=== PATIENT | male | born 1950 | race African-American/Black ===

== ENCOUNTER 2021-03-04 05:26 | Inpatient (IN) | payer MEDICARE, MEDICAID ==
[~2021-03-04] VITALS: Ht 188 cm; Wt 71.7 kg
[~2021-03-04 05:26] MED LIST: AMLO5TAB88 PO; BENZ-16 PO; DUTA0.5C37 PO; HYDR-4001 PO; INSLIS SUBCUT; KALET2 PO; LAMI150T23 PO; LEVO500T89 MT; TAMS-11 PO
[2021-03-04 06:28] LABS: PARTIAL THROMBOPLASTIN TIME 23.9 sec (23.4-31.0); PROTHROMBIN TIME 10.3 sec (9.6-11.0)
[2021-03-04] MEDS ORDERED: DOCU100T PO (06:29)
[2021-03-04] MEDS ORDERED: FERR325T6 PO (06:29)
[2021-03-04] MEDS ORDERED: SODIUM CHLORIDE 0.9% 1,000 ML IV SCH (06:30)
[2021-03-04] MEDS ORDERED: INSU100I28 SQ (06:31)
[2021-03-04] MEDS ORDERED: MEPERIDINE HCL/PF 25MG/ML CPJ IV PRN ×2 (07:30)
[2021-03-04] MEDS ORDERED: MORPHINE SULFATE 2 MG/ML CPJ (NOT FOR IM USE) IV PRN (07:30)
[2021-03-04] MEDS ORDERED: ONDANSETRON HCL 4MG/2ML INJ IV PRN (07:30)
[2021-03-04] MEDS ORDERED: HYDROMORPHONE HCL/PF 2MG/ML CPJ IV PRN (07:30)
[2021-03-04] MEDS ORDERED: SODIUM CHLORIDE 0.9% 1,000 ML IV ONE (07:30)
[2021-03-04] MEDS ORDERED: LIDOCAINE HCL/PF 1% 10 MG/ML 5ML VIAL ONE (07:41)
[2021-03-04] MEDS ORDERED: MIDAZOLAM HCL 2 MG/2 ML VIAL ONE (07:41)
[2021-03-04] MEDS ORDERED: FENTANYL CITRATE/PF 50MCG/ML 2ML VIAL ONE ×2 (07:41→07:42)
[2021-03-04] MEDS ORDERED: GLYCOPYRROLATE 0.2 MG/ML 2ML VIAL ONE (07:41)
[2021-03-04] MEDS ORDERED: PROPOFOL 200MG/20ML VIAL IV ONE (07:41)
[2021-03-04] MEDS ORDERED: METOCLOPRAMIDE HCL 10MG/2ML VIAL ONE (07:42)
[2021-03-04] MEDS ORDERED: SUCCINYLCHOLINE CHLORIDE 200MG/10ML IV ONE (07:42)
[2021-03-04] MEDS ORDERED: CEFAZOLIN SODIUM 1000MG/VIAL ONE (07:43)
[2021-03-04] MEDS ORDERED: PHENYLEPHRINE HCL 10 MG/ML 1ML (IV VIAL) IV ONE (08:34)
[2021-03-04] MEDS ORDERED: ACETAMINOPHEN 325MG TABLET PO PRN (08:45)
[2021-03-04] MEDS ORDERED: MAGNESIUM HYDROXIDE 400MG/5ML 30ML UDC PO PRN (08:45)
[2021-03-04] MEDS ORDERED: HYDROCODONE/APAP 7.5/325MG 1 TAB TABLET PO PRN (08:45)
[2021-03-04] MEDS ORDERED: NALOXONE HCL 0.4MG/ML VIAL IV PRN (10:00)
[2021-03-04] MEDS ORDERED: LORAZEPAM 1MG TABLET PO PRN (10:00)
[2021-03-04 11:41] LABS: HEMATOCRIT 30.2 % (42.0-52.0); HEMOGLOBIN 10.3 g/dL (14.0-18.0)
[2021-03-04] MEDS ORDERED: CEFAZOLIN SODIUM 1000MG/VIAL IV SCH (14:00)
[2021-03-04 17:00] VITALS: BP 126/66
[2021-03-04] MEDS ORDERED: LOPINAVIR PO SCH (17:00)
[2021-03-04] MEDS: INSULIN LISPRO 100 UNITS/ML SUBCUT SCH ×3 (17:00→21:31)
[2021-03-04] MEDS ORDERED: RITONAVIR PO SCH (17:00)
[2021-03-04] MEDS: BLOOD SUGAR DIAGNOSTIC STRIP TEST SCH ×3 (17:20→21:14)
[2021-03-04 17:30] VITALS: BP 126/66
[2021-03-04] MEDS ORDERED: DEXTROSE 50% WATER 50ML SYRINGE IV PRN ×2 (17:40→17:41)
[2021-03-04] MEDS: CEFAZOLIN 1000MG PREMIX 50 ML IV SCH (18:38)
[2021-03-04 20:00] VITALS: BP 110/68
[2021-03-04] MEDS ORDERED: ZIDOVUDINE PO SCH (21:00)
[2021-03-04] MEDS ORDERED: LAMIVUDINE PO SCH (21:00)
[2021-03-05] VITALS (7 sets, daily range): BP systolic 110–130; BP diastolic 58–72
[2021-03-05] MEDS: CEFAZOLIN 1000MG PREMIX 50 ML IV SCH (03:32)
[2021-03-05 06:21] LABS: BASOPHILS % 0.2 % (0.0-2.0); HEMATOCRIT. 29.6 % (42.0-52.0); HEMOGLOBIN. 10.2 g/dL (14.0-18.0); LYMPHOCYTES % 27.8 % (20.0-50.0); MEAN CORPUSCULAR HEMOGLOBIN 35.4 pg (28.0-32.0); MEAN CORPUSCULAR VOLUME 102.8 fL (80.0-94.0); MEAN PLATELET VOLUME 7.8 fl (7.4-10.4); MONOCYTES % 9.4 % (2.0-8.0); NEUTROPHILS % 62.6 % (40.0-76.0); PLATELET 309 x1000/uL (130-400); RED BLOOD CELL COUNT 2.88 mill/uL (4.7-6.1)
[2021-03-05 06:35] LABS: CHLORIDE 107 mEq/L (98-107)
[2021-03-05] MEDS: BLOOD SUGAR DIAGNOSTIC STRIP TEST SCH ×3 (07:09→17:53)
[2021-03-05] MEDS: INSULIN LISPRO 100 UNITS/ML SUBCUT SCH ×3 (07:10→18:02)
[2021-03-05] MEDS: FERROUS SULFATE 325MG TABLET PO SCH ×3 (08:43→17:52)
[2021-03-05] MEDS: LOPINAVIR PO SCH ×2 (08:43→17:52)
[2021-03-05] MEDS: RITONAVIR PO SCH ×2 (08:43→17:52)
[2021-03-05] MEDS ORDERED: HYDROCORTISONE 2.5% CREAM 20GM TOP SCH (09:00)
[2021-03-05] MEDS ORDERED: AMLODIPINE 5MG TABLET PO SCH (09:00)
[2021-03-05] MEDS ORDERED: LEVOFLOXACIN 500MG TABLET PO SCH (11:00)
== END 2021-03-05 21:30 | disposition home or self-care (01) | DRG 713 ==
LOC: OR 05:26 → 6EST 17:01
PROVIDERS: ADMIT Urology; ATTEND Urology
PROC: 0VT08ZZ Resection of Prostate, Via Natural or Artificial Opening Endoscopic (ICD-10-PCS; principal; 2021-03-04)
DX: N40.1 Benign prostatic hyperplasia with lower urinary tract symptoms (principal); N13.8 Other obstructive and reflux uropathy; D64.9 Anemia, unspecified; N32.0 Bladder-neck obstruction; N47.1 Phimosis
CPT/HCPCS: 36415; 71045; 80048; 80051; 82962; 85014; 85018; 85025; 88305; 93005; J0330; J0690; J1815; J2250; J2370; J2405; J2704; J2765; J3010; J3490

== ENCOUNTER 2021-03-19 08:58 | Inpatient (IN) | payer MEDICARE, MEDICAID ==
[~2021-03-19] VITALS: Ht 165.1 cm; Wt 66.7 kg
[~2021-03-19 08:58] MED LIST changes: -BENZ-16 PO; +DOCU100T PO; +FERR325T6 PO; -HYDR-4001 PO; -INSLIS SUBCUT; +INSU100I28 SQ; -LEVO500T89 MT
[2021-03-19 09:43] LABS: BASOPHILS % 0.3 % (0.0-2.0); HEMATOCRIT. 30.9 % (42.0-52.0); HEMOGLOBIN. 10.5 g/dL (14.0-18.0); LYMPHOCYTES % 28.3 % (20.0-50.0); MEAN CORPUSCULAR HEMOGLOBIN 34.9 pg (28.0-32.0); MEAN CORPUSCULAR VOLUME 102.4 fL (80.0-94.0); MEAN PLATELET VOLUME 7.1 fl (7.4-10.4); MONOCYTES % 9.2 % (2.0-8.0); NEUTROPHILS % 62.2 % (40.0-76.0); PLATELET 422 x1000/uL (130-400); RED BLOOD CELL COUNT 3.01 mill/uL (4.7-6.1); RED CELL DISTRIBUTION WIDTH 15.9 % (11.6-14.6)
[2021-03-19 09:48] LABS: CHLORIDE 106 mEq/L (98-107)
[2021-03-19 09:50] LABS: PROTHROMBIN TIME 10.3 sec (9.6-11.0)
[2021-03-19] MEDS ORDERED: IOHEXOL-300 100 ML BOTTLE ONE (12:11)
[2021-03-19] MEDS ORDERED: METRONIDAZOLE 500 MG PREMIX 100 ML IV NR (14:00)
[2021-03-19] MEDS ORDERED: CEFTRIAXONE 1 G PREMIX 50 ML IV NR (14:00)
[2021-03-19] MEDS ORDERED: DIPHENHYDRAMINE 50MG/ML VIAL IV PRN (14:30)
[2021-03-19] MEDS ORDERED: ONDANSETRON HCL 4MG/2ML INJ IV PRN (14:30)
[2021-03-19] MEDS ORDERED: GUAIFENESIN 200MG/10ML SUGAR FREE UDC PO PRN (14:30)
[2021-03-19] MEDS ORDERED: PIPERACILLIN/TAZOBACTAM 3.375 G in DEXTROSE 5% WATER 50 ML IV SCH (14:30)
[2021-03-19] MEDS ORDERED: CLONIDINE 0.1MG TABLET PO PRN (14:30)
[2021-03-19] MEDS ORDERED: HYDROCODONE/ACETAMINOPHEN 5/325MG TABLET PO PRN (14:30)
[2021-03-19] MEDS ORDERED: DOCUSATE SODIUM 100MG CAPSULE PO PRN (14:30)
[2021-03-19] MEDS ORDERED: ACETAMINOPHEN 325MG TABLET PO PRN (14:30)
[2021-03-19] MEDS ORDERED: IPRATROPIUM/ALBUTEROL 0.5-3(2.5)MG/3ML NEB NEB PRN (14:30)
[2021-03-19] MEDS: DEXT 5%/0.45% NACL 1000ML 1,000 ML IV SCH (14:30)
[2021-03-19] MEDS ORDERED: MAGNESIUM/ALUMINUM HYDROXIDE/SIMETHICONE 30ML UDC PO PRN (14:30)
[2021-03-19] MEDS: FAMOTIDINE 20MG/2ML VIAL IV SCH (14:30)
[2021-03-19] MEDS ORDERED: LORAZEPAM 0.5MG TABLET PO PRN (14:30)
[2021-03-19] MEDS ORDERED: NA PHOS,M-B/NA PHOS,DI-BA ENEMA 118ML PR NR (14:30)
[2021-03-19] MEDS ORDERED: ACETAMINOPHEN 650MG SUPP PR PRN (14:30)
[2021-03-19] MEDS ORDERED: NALOXONE HCL 0.4MG/ML VIAL IV PRN (15:00)
[2021-03-19] MEDS ORDERED: PIPERACILLIN/TAZ 3.375G PREMIX 50 ML IV NR (15:00)
[2021-03-19] MEDS ORDERED: DEXTROSE 50% WATER 50ML SYRINGE IV PRN (15:15)
[2021-03-19 16:00] VITALS: BP 139/78
[2021-03-19 16:30] VITALS: BP 139/78
[2021-03-19] MEDS ORDERED: PIPERACILLIN/TAZOBACTAM 3.375 G in DEXTROSE 5% WATER 50 ML IV NR (17:00)
[2021-03-19] MEDS: BLOOD SUGAR DIAGNOSTIC STRIP TEST SCH ×2 (17:20→21:00)
[2021-03-19] MEDS ORDERED: DOCU100T PO (17:22)
[2021-03-19] MEDS ORDERED: KALET2 MT (17:22)
[2021-03-19] MEDS ORDERED: DUTA0.5C37 PO (17:22)
[2021-03-19] MEDS ORDERED: AMLO5TAB88 PO (17:22)
[2021-03-19] MEDS ORDERED: FERR325T6 PO (17:22)
[2021-03-19] MEDS ORDERED: CIPR500S4 PO (17:22)
[2021-03-19] MEDS ORDERED: LAMI1TAB PO (17:22)
[2021-03-19] MEDS ORDERED: TAMS-11 PO (17:22)
[2021-03-19] MEDS: INSULIN LISPRO 100 UNITS/ML SUBCUT SCH ×2 (17:50→21:00)
[2021-03-19 20:00] VITALS: BP 132/57
[2021-03-19] MEDS ORDERED: PIPERACILLIN/TAZOBACTAM 3.375G in DEXT 5% WATER 50ML IV SCH (22:00)
[2021-03-19] MEDS: PIPERACILLIN/TAZOBACTAM 3.375G in DEXT 5% WATER 50ML IV SCH (22:14)
[2021-03-19] MEDS: NA PHOS,M-B/NA PHOS,DI-BA ENEMA 118ML PR PRN (22:14)
[2021-03-20] VITALS: BP_SYST 124; BP_SYST 145; BP_DIAS 75; BP_DIAS 78
[2021-03-20 00:19] LABS: CLARITY URINE CLEAR (CLEAR); COLOR URINE YELLOW (YELLOW); KETONES URINE NEGATIVE (NEGATIVE); LEUKOCYTE ESTERASE URINE 3+ (NEGATIVE); NITRITE URINE NEGATIVE (NEGATIVE); OCCULT BLOOD URINE 2+ (NEGATIVE); PH URINE 7.5 (4.5-8.0); PROTEIN URINE 1+ (NEGATIVE); SPECIFIC GRAVITY URINE 1.028 (1.005-1.030); UROBILINOGEN URINE 0.2 E.U./dL (0.2-1.0)
[2021-03-20 04:00] VITALS: BP 130/70
[2021-03-20] MEDS: DEXT 5%/0.45% NACL 1000ML 1,000 ML IV SCH ×2 (06:16→22:40)
[2021-03-20] MEDS: NA PHOS,M-B/NA PHOS,DI-BA ENEMA 118ML PR PRN (06:16)
[2021-03-20] MEDS: PIPERACILLIN/TAZOBACTAM 3.375G in DEXT 5% WATER 50ML IV SCH ×2 (06:16→15:07)
[2021-03-20] MEDS: INSULIN LISPRO 100 UNITS/ML SUBCUT SCH ×4 (06:25→21:59)
[2021-03-20] MEDS: BLOOD SUGAR DIAGNOSTIC STRIP TEST SCH ×4 (06:25→21:00)
[2021-03-20 07:13] LABS: BASOPHILS % 0.3 % (0.0-2.0); EOSINOPHILS % 0.1 % (0.0-5.0); HEMATOCRIT. 30.7 % (42.0-52.0); HEMOGLOBIN. 10.3 g/dL (14.0-18.0); LYMPHOCYTES % 27.4 % (20.0-50.0); MEAN CORPUSCULAR HEMOGLOBIN 34.5 pg (28.0-32.0); MEAN CORPUSCULAR VOLUME 102.8 fL (80.0-94.0); MEAN PLATELET VOLUME 7.6 fl (7.4-10.4); MONOCYTES % 10.6 % (2.0-8.0); NEUTROPHILS % 61.6 % (40.0-76.0); PLATELET 381 x1000/uL (130-400); RED BLOOD CELL COUNT 2.99 mill/uL (4.7-6.1); RED CELL DISTRIBUTION WIDTH 16.2 % (11.6-14.6)
[2021-03-20 08:00] VITALS: BP_SYST 120; BP_SYST 132; BP_DIAS 70; BP_DIAS 73
[2021-03-20 08:08] LABS: CHLORIDE 107 mEq/L (98-107)
[2021-03-20 08:18] LABS: LDL CHOLESTEROL 106 mg/dL (5-100)
[2021-03-20 08:19] LABS: HDL CHOLESTEROL 51 mg/dL (40-59); T4 FREE 1.17 ng/dL (0.76-1.46)
[2021-03-20] MEDS: FAMOTIDINE 20MG/2ML VIAL IV SCH (10:42)
[2021-03-20 12:00] VITALS: BP 132/73
[2021-03-20] MEDS ORDERED: LACTULOSE 20G/30ML UDC PO SCH (12:15)
[2021-03-20] MEDS ORDERED: DOCUSATE SODIUM 100MG CAPSULE PO SCH (12:15)
[2021-03-20 16:00] VITALS: BP 143/77
[2021-03-20] MEDS ORDERED: VANCOMYCIN 1500MG in DEXTROSE 5% WATER 250ML IV SCH (16:00)
[2021-03-20 17:19] LABS: CREATINE KINASE 58 IU/L (39-308)
[2021-03-20 17:20] LABS: CREATINE KINASE MB FRACTION < 1.0 ng/mL (0.5-3.6)
[2021-03-20] MEDS: METRONIDAZOLE 500MG TABLET PO SCH ×2 (18:04→22:39)
[2021-03-20] MEDS: DOCUSATE SODIUM 100MG CAPSULE PO SCH (18:04)
[2021-03-20] MEDS: CEFEPIME 2,000 MG in DEXT 5% WATER 100 ML IV SCH ×2 (18:05→22:39)
[2021-03-20 20:00] VITALS: BP 124/69
[2021-03-20] MEDS: ZIDOVUDINE PO SCH (21:58)
[2021-03-20] MEDS: LAMIVUDINE PO SCH (21:58)
[2021-03-20] MEDS: LOPINAVIR PO SCH (21:58)
[2021-03-20] MEDS: RITONAVIR PO SCH (21:58)
[2021-03-20] MEDS ORDERED: *PATIENT'S OWN MEDICATION STORAGE XX SCH (22:00)
[2021-03-21] VITALS (39 sets, daily range): BP systolic 105–139; BP diastolic 53–97
[2021-03-21] MEDS: CEFEPIME 2,000 MG in DEXT 5% WATER 100 ML IV SCH ×3 (05:15→21:57)
[2021-03-21] MEDS ORDERED: VANCOMYCIN 750 MG PREMIX 150 ML IV SCH ×2 (06:00→20:00)
[2021-03-21] MEDS ORDERED: LIDOCAINE HCL/EPINEPHRINE 1%-EPI 1:100,000 20 ML VIAL ONE (06:27)
[2021-03-21] MEDS ORDERED: THROMBIN (BOVINE) 5000 UNITS/VIAL TOP ONE (06:27)
[2021-03-21] MEDS ORDERED: GENTAMICIN SULF 40MG/ML 2ML VIAL ONE (06:27)
[2021-03-21] MEDS: BLOOD SUGAR DIAGNOSTIC STRIP TEST SCH ×4 (06:40→21:22)
[2021-03-21 06:55] LABS: BASOPHILS % 0.3 % (0.0-2.0); EOSINOPHILS % 0.1 % (0.0-5.0); HEMATOCRIT. 30.3 % (42.0-52.0); HEMOGLOBIN. 10.2 g/dL (14.0-18.0); LYMPHOCYTES % 26.3 % (20.0-50.0); MEAN CORPUSCULAR HEMOGLOBIN 34.4 pg (28.0-32.0); MEAN CORPUSCULAR VOLUME 102.3 fL (80.0-94.0); MEAN PLATELET VOLUME 7.9 fl (7.4-10.4); MONOCYTES % 14.1 % (2.0-8.0); NEUTROPHILS % 59.2 % (40.0-76.0); PLATELET 367 x1000/uL (130-400); RED BLOOD CELL COUNT 2.96 mill/uL (4.7-6.1); RED CELL DISTRIBUTION WIDTH 16.1 % (11.6-14.6)
[2021-03-21 06:58] LABS: CHLORIDE 106 mEq/L (98-107)
[2021-03-21] MEDS ORDERED: PHENYLEPHRINE HCL 10 MG/ML 1ML (IV VIAL) IV ONE (07:20)
[2021-03-21] MEDS ORDERED: MIDAZOLAM HCL 2 MG/2 ML VIAL ONE (07:20)
[2021-03-21] MEDS ORDERED: SODIUM CHLORIDE 0.9% 10ML VIAL ONE (07:20)
[2021-03-21] MEDS ORDERED: NEOSTIGMINE METHYLSULFATE 1MG/ML 10 ML VIAL ONE (07:20)
[2021-03-21] MEDS ORDERED: FENTANYL CITRATE/PF 50MCG/ML 2ML VIAL ONE (07:20)
[2021-03-21] MEDS ORDERED: SUCCINYLCHOLINE CHLORIDE 200MG/10ML IV ONE (07:20)
[2021-03-21] MEDS ORDERED: GLYCOPYRROLATE 0.2 MG/ML 2ML VIAL ONE (07:20)
[2021-03-21] MEDS ORDERED: PROPOFOL 200MG/20ML VIAL IV ONE (07:20)
[2021-03-21] MEDS ORDERED: ROCURONIUM BROMIDE 10MG/ML VIAL 5ML IV ONE ×2 (07:20→08:12)
[2021-03-21] MEDS ORDERED: METOCLOPRAMIDE HCL 10MG/2ML VIAL ONE (07:21)
[2021-03-21] MEDS ORDERED: ONDANSETRON HCL 4MG/2ML INJ ONE (07:21)
[2021-03-21] MEDS ORDERED: MORPHINE SULFATE 4 MG/ML CPJ (NOT FOR IM USE) IV PRN (07:45)
[2021-03-21] MEDS: METRONIDAZOLE 500MG TABLET PO SCH ×2 (09:00→21:34)
[2021-03-21] MEDS: FAMOTIDINE 20MG/2ML VIAL IV SCH (09:00)
[2021-03-21] MEDS: DOCUSATE SODIUM 100MG CAPSULE PO SCH ×2 (09:00→17:27)
[2021-03-21 09:08] LABS: ABSOLUTE EOSINOPHILS 0.2 x10E3/uL (0.0-0.4); ABSOLUTE LYMPHOCYTES 2.7 x10E3/uL (0.7-3.1); ABSOLUTE MONOCYTES 0.8 x10E3/uL (0.1-0.9); ABSOLUTE NEUTROPHILS 4.3 x10E3/uL (1.4-7.0); BASOPHILS 0 % (Not Estab.); HEMOGLOBIN 10.3 g/dL (13.0-17.7); IMMATURE GRANULOCYTES 0 % (Not Estab.); LYMPHOCYTES 34 % (Not Estab.); MEAN CORPUSCULAR HEMOGLOBIN 33.8 pg (26.6-33.0); MEAN CORPUSCULAR HGB CONC. 33.2 g/dL (31.5-35.7); MEAN CORPUSCULAR VOLUME 102 fL (79-97); MONOCYTES 9 % (Not Estab.); NEUTROPHILS 55 % (Not Estab.); PLATELETS 388 x10E3/uL (150-450); RBC 3.05 x10E6/uL (4.14-5.80); RED CELL DISTRIBUTION WIDTH 15.9 % (11.6-15.4)
[2021-03-21] MEDS: RITONAVIR PO SCH ×2 (09:20→21:35)
[2021-03-21] MEDS: LAMIVUDINE PO SCH ×2 (09:20→21:34)
[2021-03-21] MEDS: ZIDOVUDINE PO SCH ×2 (09:20→21:34)
[2021-03-21] MEDS: LOPINAVIR PO SCH ×2 (09:20→21:35)
[2021-03-21] MEDS ORDERED: ONDANSETRON INJ IV PRN (09:30)
[2021-03-21] MEDS ORDERED: DIPHENHYDRAMINE INJ IV PRN (09:30)
[2021-03-21] MEDS ORDERED: NALOXONE INJ IV PRN (09:30)
[2021-03-21] MEDS ORDERED: NICARDIPINE 100 MG in SODIUM CHLORIDE 0.9% 60 ML IV PRN (09:30)
[2021-03-21] MEDS ORDERED: HYDROMORPHONE PCA 10MG/50ML IV PRN (09:30)
[2021-03-21] MEDS: DEXT 5%/LACTATED RINGERS 1,000 ML IV SCH ×2 (09:44→17:27)
[2021-03-21] MEDS: INSULIN LISPRO 100 UNITS/ML SUBCUT SCH ×3 (11:30→21:44)
[2021-03-21 13:07] LABS: % CD 3 POS. LYMPHOCYTES 77.5 % (57.5-86.2); % CD 4 POS. LYMPHOCYTES 40.8 % (30.8-58.5); % CD 8 POS. LYMPH 35.3 % (12.0-35.5); ABSOLUTE CD 3 2093 /uL (622-2402); ABSOLUTE CD 4 HELPER 1102 /uL (359-1519); ABSOLUTE CD 8 SUPPRESSOR 953 /uL (109-897); CD4/CD8 RATIO 1.16 (0.92-3.72)
[2021-03-21] MEDS: VANCOMYCIN 750 MG PREMIX 150 ML IV SCH (23:12)
[2021-03-22] VITALS: BP 128/66
[2021-03-22] MEDS: DEXT 5%/LACTATED RINGERS 1,000 ML IV SCH ×3 (00:16→16:05)
[2021-03-22 04:00] VITALS: BP 130/60
[2021-03-22] MEDS: CEFEPIME 2,000 MG in DEXT 5% WATER 100 ML IV SCH ×3 (05:11→21:31)
[2021-03-22 05:20] LABS: CHLORIDE 104 mEq/L (98-107)
[2021-03-22] MEDS: BLOOD SUGAR DIAGNOSTIC STRIP TEST SCH ×4 (06:11→21:00)
[2021-03-22] MEDS: INSULIN LISPRO 100 UNITS/ML SUBCUT SCH ×4 (06:20→21:00)
[2021-03-22 08:00] VITALS: BP 123/62
[2021-03-22] MEDS: DOCUSATE SODIUM 100MG CAPSULE PO SCH ×2 (08:44→16:11)
[2021-03-22] MEDS: METRONIDAZOLE 500MG TABLET PO SCH ×2 (08:44→20:53)
[2021-03-22] MEDS: FAMOTIDINE 20MG/2ML VIAL IV SCH (08:44)
[2021-03-22] MEDS: LOPINAVIR PO SCH ×2 (08:45→20:54)
[2021-03-22] MEDS: LAMIVUDINE PO SCH ×2 (08:45→20:53)
[2021-03-22] MEDS: ZIDOVUDINE PO SCH ×2 (08:45→20:53)
[2021-03-22] MEDS: RITONAVIR PO SCH ×2 (08:45→20:54)
[2021-03-22] MEDS: VANCOMYCIN 750 MG PREMIX 150 ML IV SCH ×2 (08:47→22:47)
[2021-03-22 12:00] VITALS: BP 141/74
[2021-03-22] MEDS: NA PHOS,M-B/NA PHOS,DI-BA ENEMA 118ML PR PRN (15:02)
[2021-03-22 16:16] VITALS: BP 131/70
[2021-03-22 20:00] VITALS: BP 131/74
[2021-03-23] VITALS: BP 132/72
[2021-03-23] MEDS: DEXT 5%/LACTATED RINGERS 1,000 ML IV SCH ×3 (00:20→16:08)
[2021-03-23 04:00] VITALS: BP 104/68
[2021-03-23] MEDS: CEFEPIME 2,000 MG in DEXT 5% WATER 100 ML IV SCH ×3 (05:35→21:11)
[2021-03-23] MEDS: BLOOD SUGAR DIAGNOSTIC STRIP TEST SCH ×4 (06:06→21:12)
[2021-03-23] MEDS: INSULIN LISPRO 100 UNITS/ML SUBCUT SCH ×4 (06:46→21:00)
[2021-03-23 08:00] VITALS: BP 136/82
[2021-03-23] MEDS: FAMOTIDINE 20MG/2ML VIAL IV SCH (08:52)
[2021-03-23] MEDS: DOCUSATE SODIUM 100MG CAPSULE PO SCH ×2 (08:53→16:08)
[2021-03-23] MEDS: RITONAVIR PO SCH ×2 (08:53→21:14)
[2021-03-23] MEDS: LOPINAVIR PO SCH ×2 (08:53→21:14)
[2021-03-23] MEDS: METRONIDAZOLE 500MG TABLET PO SCH ×2 (08:53→21:11)
[2021-03-23] MEDS: ZIDOVUDINE PO SCH ×2 (08:53→21:13)
[2021-03-23] MEDS: LAMIVUDINE PO SCH ×2 (08:53→21:13)
[2021-03-23] MEDS: VANCOMYCIN 750 MG PREMIX 150 ML IV SCH ×2 (09:00→21:12)
[2021-03-23 12:00] VITALS: BP 142/79
[2021-03-23 15:41] LABS: BASOPHILS % 0.2 % (0.0-2.0); EOSINOPHILS % 0.2 % (0.0-5.0); HEMATOCRIT. 26.1 % (42.0-52.0); HEMOGLOBIN. 9.2 g/dL (14.0-18.0); LYMPHOCYTES % 16.3 % (20.0-50.0); MEAN CORPUSCULAR HEMOGLOBIN 35.4 pg (28.0-32.0); MEAN CORPUSCULAR VOLUME 100.1 fL (80.0-94.0); MEAN PLATELET VOLUME 7.7 fl (7.4-10.4); MONOCYTES % 9.9 % (2.0-8.0); NEUTROPHILS % 73.4 % (40.0-76.0); PLATELET 294 x1000/uL (130-400); RED BLOOD CELL COUNT 2.61 mill/uL (4.7-6.1); RED CELL DISTRIBUTION WIDTH 15.2 % (11.6-14.6)
[2021-03-23 15:53] LABS: CHLORIDE 100 mEq/L (98-107)
[2021-03-23 16:00] VITALS: BP 152/76
[2021-03-23 20:00] VITALS: BP 117/69
[2021-03-24] VITALS: BP 114/66
[2021-03-24 04:00] VITALS: BP 104/70
[2021-03-24] MEDS: CEFEPIME 2,000 MG in DEXT 5% WATER 100 ML IV SCH ×2 (06:13→14:40)
[2021-03-24] MEDS: INSULIN LISPRO 100 UNITS/ML SUBCUT SCH ×4 (07:10→21:00)
[2021-03-24] MEDS: BLOOD SUGAR DIAGNOSTIC STRIP TEST SCH ×4 (07:34→21:29)
[2021-03-24 07:57] LABS: CHLORIDE 103 mEq/L (98-107)
[2021-03-24 08:00] VITALS: BP 115/67
[2021-03-24] MEDS: FAMOTIDINE 20MG/2ML VIAL IV SCH (08:59)
[2021-03-24] MEDS: DOCUSATE SODIUM 100MG CAPSULE PO SCH ×2 (08:59→17:21)
[2021-03-24] MEDS: METRONIDAZOLE 500MG TABLET PO SCH ×2 (08:59→21:28)
[2021-03-24] MEDS: ZIDOVUDINE PO SCH ×2 (09:00→21:28)
[2021-03-24] MEDS: LOPINAVIR PO SCH ×2 (09:00→21:29)
[2021-03-24] MEDS: LAMIVUDINE PO SCH ×2 (09:00→21:28)
[2021-03-24] MEDS: RITONAVIR PO SCH ×2 (09:00→21:29)
[2021-03-24] MEDS: VANCOMYCIN 750 MG PREMIX 150 ML IV SCH (09:55)
[2021-03-24 11:49] LABS: BASOPHILS % 0.2 % (0.0-2.0); EOSINOPHILS % 0.2 % (0.0-5.0); HEMATOCRIT. 27.9 % (42.0-52.0); HEMOGLOBIN. 9.7 g/dL (14.0-18.0); LYMPHOCYTES % 16.4 % (20.0-50.0); MEAN CORPUSCULAR HEMOGLOBIN 35.4 pg (28.0-32.0); MEAN CORPUSCULAR VOLUME 101.4 fL (80.0-94.0); MEAN PLATELET VOLUME 7.4 fl (7.4-10.4); MONOCYTES % 11.4 % (2.0-8.0); NEUTROPHILS % 71.8 % (40.0-76.0); PLATELET 280 x1000/uL (130-400); RED BLOOD CELL COUNT 2.75 mill/uL (4.7-6.1); RED CELL DISTRIBUTION WIDTH 15.4 % (11.6-14.6)
[2021-03-24 12:00] VITALS: BP 113/63
[2021-03-24] MEDS: DEXT 5%/LACTATED RINGERS 1,000 ML IV SCH (12:54)
[2021-03-24] MEDS ORDERED: BISACODYL 10MG SUPP PR NR (15:00)
[2021-03-24 16:00] VITALS: BP 109/68
[2021-03-24] MEDS ORDERED: DOCUSATE SODIUM 100MG CAPSULE PO SCH (17:00)
[2021-03-24] MEDS: METOCLOPRAMIDE HCL 10MG/2ML VIAL IV SCH ×2 (17:21→23:28)
[2021-03-24] MEDS ORDERED: CEFTRIAXONE 2 G PREMIX 50 ML IV SCH (18:00)
[2021-03-24 20:00] VITALS: BP 119/64
[2021-03-24] MEDS ORDERED: CEFTRIAXONE 2 G in DEXTROSE 5% WATER 50 ML IV SCH (20:00)
[2021-03-24] MEDS: VANCOMYCIN 1 G PREMIX 200 ML IV SCH (21:28)
[2021-03-25] VITALS: BP 140/78
[2021-03-25 04:00] VITALS: BP 102/43
[2021-03-25] MEDS: BLOOD SUGAR DIAGNOSTIC STRIP TEST SCH ×2 (06:51→12:01)
[2021-03-25] MEDS: METOCLOPRAMIDE HCL 10MG/2ML VIAL IV SCH (06:51)
[2021-03-25] MEDS: INSULIN LISPRO 100 UNITS/ML SUBCUT SCH ×2 (06:52→12:11)
[2021-03-25 08:00] VITALS: BP 123/74
[2021-03-25] MEDS: DEXT 5%/LACTATED RINGERS 1,000 ML IV SCH (09:55)
[2021-03-25] MEDS: DOCUSATE SODIUM 100MG CAPSULE PO SCH (09:56)
[2021-03-25] MEDS: FAMOTIDINE 20MG/2ML VIAL IV SCH (09:56)
[2021-03-25] MEDS: VANCOMYCIN 1 G PREMIX 200 ML IV SCH (09:56)
[2021-03-25] MEDS: METRONIDAZOLE 500MG TABLET PO SCH (09:56)
[2021-03-25] MEDS: LOPINAVIR PO SCH (09:57)
[2021-03-25] MEDS: LAMIVUDINE PO SCH (09:57)
[2021-03-25] MEDS: ZIDOVUDINE PO SCH (09:57)
[2021-03-25] MEDS: RITONAVIR PO SCH (09:57)
[2021-03-25 11:02] LABS: BASOPHILS % 0.2 % (0.0-2.0); EOSINOPHILS % 0.2 % (0.0-5.0); HEMATOCRIT. 27.2 % (42.0-52.0); HEMOGLOBIN. 9.3 g/dL (14.0-18.0); LYMPHOCYTES % 15.5 % (20.0-50.0); MEAN CORPUSCULAR VOLUME 100.1 fL (80.0-94.0); MEAN PLATELET VOLUME 7.1 fl (7.4-10.4); MONOCYTES % 11.2 % (2.0-8.0); NEUTROPHILS % 72.9 % (40.0-76.0); PLATELET 335 x1000/uL (130-400); RED BLOOD CELL COUNT 2.72 mill/uL (4.7-6.1); RED CELL DISTRIBUTION WIDTH 15.1 % (11.6-14.6)
[2021-03-25 11:09] LABS: CHLORIDE 102 mEq/L (98-107)
[2021-03-25 12:00] VITALS: BP 122/64
[2021-03-25] MEDS ORDERED: METOCLOPRAMIDE HCL 10MG/2ML VIAL IV SCH (12:00)
[2021-03-25] MEDS ORDERED: NA PHOS,M-B/NA PHOS,DI-BA ENEMA 118ML PR NR (12:30)
[2021-03-25] MEDS ORDERED: LACTULOSE 20G/30ML UDC PO NR (12:30)
[2021-03-25 16:07] VITALS: BP 122/64
[2021-03-26] MEDS ORDERED: FAMOTIDINE 20MG TABLET PO SCH (09:00)
== END 2021-03-25 17:10 | DRG 29 ==
LOC: ER 08:58 → 6EST 13:59 → ENRESERV 14:57 → CANBEDREQ 22:01 → MICUNO 03-21 09:20 → 7EST 03-21 20:00
PROVIDERS: ADMIT Internal Medicine; ATTEND Internal Medicine
PROC: 01NB0ZZ Release Lumbar Nerve, Open Approach (ICD-10-PCS; principal; 2021-03-21)
PROC: 009U0ZZ Drainage of Spinal Canal, Open Approach (ICD-10-PCS; 2021-03-21)
PROC: 02HV33Z Insertion of Infusion Device into Superior Vena Cava, Percutaneous Approach (ICD-10-PCS; 2021-03-23)
PROC: B548ZZA Ultrasonography of Superior Vena Cava, Guidance (ICD-10-PCS; 2021-03-23)
DX: G06.2 Extradural and subdural abscess, unspecified (principal); N39.0 Urinary tract infection, site not specified; G82.20 Paraplegia, unspecified; G99.2 Myelopathy in diseases classified elsewhere; K56.41 Fecal impaction; E11.65 Type 2 diabetes mellitus with hyperglycemia; D63.8 Anemia in other chronic diseases classified elsewhere; K52.89 Other specified noninfective gastroenteritis and colitis; G89.29 Other chronic pain; R15.9 Full incontinence of feces; M48.061 Spinal stenosis, lumbar region without neurogenic claudication; B95.61 Methicillin susceptible Staphylococcus aureus infection as the cause of diseases classified elsewhere; E78.5 Hyperlipidemia, unspecified; I10 Essential (primary) hypertension; Z20.822 Contact with and (suspected) exposure to COVID-19; M47.812 Spondylosis without myelopathy or radiculopathy, cervical region; N32.0 Bladder-neck obstruction; N40.0 Benign prostatic hyperplasia without lower urinary tract symptoms; N47.1 Phimosis; Z82.49 Family history of ischemic heart disease and other diseases of the circulatory system; Z79.899 Other long term (current) drug therapy
CPT/HCPCS: 36415; 71045; 72100; 72156; 72157; 72158; 74018; 74177; 76000; 76937; 80048; 80053; 80061; 80202; 81003; 82550; 82553; 82962; 83036; 84439; 84443; 84484; 85025; 85651; 86140; 86359; 86360; 86850; 86900; 87070; 87075; 87426; 88305; 88311; 93005; 93306; 93970; 95863; 95925; 95926; 95928; 95929; 97116; 97161; 97164; 97166; 97530; 99285; C1725; J0330; J0692; J0696; J1170; J1580; J1815; J2250; J2270; J2370; J2405; J2543; J2704; J2710; J2765; J3010; J3370; J3490; J7040; J7060; J7121; Q9967; A4315

== ENCOUNTER 2021-03-25 17:07 | Inpatient (IN) | payer MEDICARE, MEDICAID ==
[~2021-03-25] VITALS: Ht 188 cm; Wt 73.5 kg
[~2021-03-25 17:07] MED LIST changes: +CIPR500S4 PO; +KALET2 MT; +LAMI1TAB PO
[2021-03-25] MEDS ORDERED: ACETAMINOPHEN 325MG TABLET PO PRN ×2 (18:30)
[2021-03-25] MEDS ORDERED: NON FORMULARY PATIENT HOME MED XX SCH ×2 (18:30)
[2021-03-25] MEDS ORDERED: MORPHINE SULFATE 4 MG/ML CPJ (NOT FOR IM USE) IV PRN (18:30)
[2021-03-25] MEDS ORDERED: IPRATROPIUM/ALBUTEROL 0.5-3(2.5)MG/3ML NEB HHN PRN (18:30)
[2021-03-25] MEDS ORDERED: DIPHENHYDRAMINE 50MG/ML VIAL IV PRN (18:30)
[2021-03-25] MEDS ORDERED: GUAIFENESIN 200MG/10ML SUGAR FREE UDC PO PRN (18:30)
[2021-03-25] MEDS ORDERED: CLONIDINE 0.1MG TABLET PO PRN (18:30)
[2021-03-25] MEDS ORDERED: MAGNESIUM/ALUMINUM HYDROXIDE/SIMETHICONE 30ML UDC PO PRN (18:30)
[2021-03-25] MEDS ORDERED: DEXTROSE 50% WATER 50ML SYRINGE IV PRN (18:30)
[2021-03-25] MEDS ORDERED: ONDANSETRON HCL 4MG/2ML INJ IV PRN (18:30)
[2021-03-25 19:22] VITALS: BP 121/75
[2021-03-25 20:00] VITALS: BP 129/77
[2021-03-25] MEDS ORDERED: ZIDOVUDINE PO SCH ×2 (20:00→21:00)
[2021-03-25] MEDS ORDERED: RITONAVIR PO SCH ×2 (20:00→20:15)
[2021-03-25] MEDS ORDERED: NALOXONE HCL 0.4MG/ML VIAL IV PRN (20:00)
[2021-03-25] MEDS ORDERED: LAMIVUDINE PO SCH ×2 (20:00→21:00)
[2021-03-25] MEDS ORDERED: LOPINAVIR PO SCH ×2 (20:00→20:15)
[2021-03-25] MEDS ORDERED: FAMOTIDINE 20MG TABLET PO ONE (21:00)
[2021-03-25] MEDS: INSULIN LISPRO 100 UNITS/ML SUBCUT SCH ×2 (21:00→22:41)
[2021-03-25] MEDS: CEFTRIAXONE 2 G in DEXTROSE 5% WATER 50 ML IV SCH (21:29)
[2021-03-25] MEDS: BLOOD SUGAR DIAGNOSTIC STRIP TEST SCH (21:29)
[2021-03-25] MEDS: VANCOMYCIN 1 G PREMIX 200 ML IV SCH (21:38)
[2021-03-25] MEDS: LOPINAVIR PO SCH ×2 (22:24→23:24)
[2021-03-25] MEDS: RITONAVIR PO SCH ×2 (22:24→23:24)
[2021-03-25] MEDS: METOCLOPRAMIDE HCL 10MG/2ML VIAL IV SCH (23:24)
[2021-03-26] MEDS: METOCLOPRAMIDE HCL 10MG/2ML VIAL IV SCH ×3 (06:27→18:55)
[2021-03-26] MEDS: BLOOD SUGAR DIAGNOSTIC STRIP TEST SCH ×4 (06:27→20:46)
[2021-03-26] MEDS: INSULIN LISPRO 100 UNITS/ML SUBCUT SCH ×4 (06:29→21:48)
[2021-03-26 08:00] VITALS: BP 115/65
[2021-03-26] MEDS ORDERED: DOCUSATE SODIUM 100MG CAPSULE PO SCH (09:00)
[2021-03-26] MEDS: DOCUSATE SODIUM 100MG CAPSULE PO SCH ×2 (09:26→18:05)
[2021-03-26] MEDS: FAMOTIDINE 20MG TABLET PO SCH (09:27)
[2021-03-26] MEDS: VANCOMYCIN 1 G PREMIX 200 ML IV SCH ×2 (09:27→21:48)
[2021-03-26] MEDS: LOPINAVIR PO SCH (18:05)
[2021-03-26] MEDS: RITONAVIR PO SCH (18:05)
[2021-03-26] MEDS: LACTULOSE 20G/30ML UDC PO SCH ×2 (18:55→20:46)
[2021-03-26] MEDS: BISACODYL 5MG TABLET PO PRN (18:55)
[2021-03-26 18:57] LABS: BASOPHILS % 0.3 % (0.0-2.0); EOSINOPHILS % 0.4 % (0.0-5.0); HEMATOCRIT. 24.9 % (42.0-52.0); HEMOGLOBIN. 8.8 g/dL (14.0-18.0); LYMPHOCYTES % 24.1 % (20.0-50.0); MEAN CORPUSCULAR VOLUME 99.1 fL (80.0-94.0); MEAN PLATELET VOLUME 6.9 fl (7.4-10.4); MONOCYTES % 11.2 % (2.0-8.0); PLATELET 318 x1000/uL (130-400); RED BLOOD CELL COUNT 2.51 mill/uL (4.7-6.1); RED CELL DISTRIBUTION WIDTH 15.6 % (11.6-14.6)
[2021-03-26 19:04] LABS: CHLORIDE 103 mEq/L (98-107)
[2021-03-26 20:00] VITALS: BP 133/75
[2021-03-26 20:11] LABS: CLARITY URINE CLOUDY (CLEAR); COLOR URINE YELLOW (YELLOW); KETONES URINE NEGATIVE (NEGATIVE); LEUKOCYTE ESTERASE URINE 2+ (NEGATIVE); NITRITE URINE NEGATIVE (NEGATIVE); OCCULT BLOOD URINE 2+ (NEGATIVE); PROTEIN URINE 1+ (NEGATIVE); SPECIFIC GRAVITY URINE 1.014 (1.005-1.030); UROBILINOGEN URINE 0.2 E.U./dL (0.2-1.0)
[2021-03-26] MEDS: CEFTRIAXONE 2 G in DEXTROSE 5% WATER 50 ML IV SCH (20:46)
[2021-03-27] MEDS: LACTULOSE 20G/30ML UDC PO SCH ×2 (00:04→04:27)
[2021-03-27] MEDS: METOCLOPRAMIDE HCL 10MG/2ML VIAL IV SCH ×2 (00:04→05:37)
[2021-03-27] MEDS: BLOOD SUGAR DIAGNOSTIC STRIP TEST SCH ×4 (05:39→20:10)
[2021-03-27] MEDS: INSULIN LISPRO 100 UNITS/ML SUBCUT SCH ×4 (05:39→20:10)
[2021-03-27] MEDS: NA PHOS,M-B/NA PHOS,DI-BA ENEMA 118ML PR PRN (05:40)
[2021-03-27 08:00] VITALS: BP 123/75
[2021-03-27] MEDS: DOCUSATE SODIUM 100MG CAPSULE PO SCH ×2 (08:39→19:47)
[2021-03-27] MEDS: RITONAVIR PO SCH ×2 (08:40→19:49)
[2021-03-27] MEDS: LOPINAVIR PO SCH ×2 (08:40→19:49)
[2021-03-27] MEDS: FAMOTIDINE 20MG TABLET PO SCH (08:40)
[2021-03-27 10:31] LABS: BASOPHILS % 0.3 % (0.0-2.0); EOSINOPHILS % 0.1 % (0.0-5.0); HEMATOCRIT. 29.2 % (42.0-52.0); LYMPHOCYTES % 27.4 % (20.0-50.0); MEAN CORPUSCULAR HEMOGLOBIN 34.5 pg (28.0-32.0); MEAN CORPUSCULAR VOLUME 101.1 fL (80.0-94.0); MONOCYTES % 11.2 % (2.0-8.0); RED BLOOD CELL COUNT 2.89 mill/uL (4.7-6.1); RED CELL DISTRIBUTION WIDTH 15.4 % (11.6-14.6)
[2021-03-27 10:51] LABS: CHLORIDE 103 mEq/L (98-107)
[2021-03-27 11:13] LABS: MEAN PLATELET VOLUME 8.1 fl (7.4-10.4)
[2021-03-27 11:14] LABS: PLATELET 388 x1000/uL (130-400)
[2021-03-27] MEDS: METRONIDAZOLE 500MG TABLET PO SCH ×2 (11:25→20:10)
[2021-03-27 20:00] VITALS: BP 134/73
[2021-03-27] MEDS: CEFTRIAXONE 2 G in DEXTROSE 5% WATER 50 ML IV SCH (20:10)
[2021-03-27] MEDS: VANCOMYCIN 1250MG in DEXTROSE 5% WATER 250ML IV SCH (23:07)
[2021-03-28] MEDS: INSULIN LISPRO 100 UNITS/ML SUBCUT SCH ×4 (06:07→21:13)
[2021-03-28] MEDS: BLOOD SUGAR DIAGNOSTIC STRIP TEST SCH ×4 (06:07→20:09)
[2021-03-28 08:00] VITALS: BP 135/78
[2021-03-28] MEDS: METRONIDAZOLE 500MG TABLET PO SCH ×2 (09:29→20:08)
[2021-03-28] MEDS: FAMOTIDINE 20MG TABLET PO SCH (09:29)
[2021-03-28] MEDS: LOPINAVIR PO SCH ×2 (09:30→16:59)
[2021-03-28] MEDS: DOCUSATE SODIUM 100MG CAPSULE PO SCH ×2 (09:30→16:58)
[2021-03-28] MEDS: RITONAVIR PO SCH ×2 (09:30→16:59)
[2021-03-28] MEDS: ZIDOVUDINE PO SCH ×2 (15:26→20:09)
[2021-03-28] MEDS: LAMIVUDINE PO SCH ×2 (15:26→20:09)
[2021-03-28] MEDS: VANCOMYCIN 1250MG in DEXTROSE 5% WATER 250ML IV SCH (17:00)
[2021-03-28 20:00] VITALS: BP 100/43
[2021-03-28] MEDS: CEFTRIAXONE 2 G in DEXTROSE 5% WATER 50 ML IV SCH (20:08)
[2021-03-29] MEDS: BLOOD SUGAR DIAGNOSTIC STRIP TEST SCH ×4 (06:03→21:00)
[2021-03-29] MEDS: INSULIN LISPRO 100 UNITS/ML SUBCUT SCH ×4 (06:03→21:00)
[2021-03-29 07:51] LABS: BASOPHILS % 0.4 % (0.0-2.0); EOSINOPHILS % 0.3 % (0.0-5.0); HEMATOCRIT. 26.9 % (42.0-52.0); HEMOGLOBIN. 9.4 g/dL (14.0-18.0); LYMPHOCYTES % 29.1 % (20.0-50.0); MEAN CORPUSCULAR HEMOGLOBIN 35.1 pg (28.0-32.0); MEAN CORPUSCULAR VOLUME 100.3 fL (80.0-94.0); MEAN PLATELET VOLUME 7.2 fl (7.4-10.4); MONOCYTES % 11.5 % (2.0-8.0); NEUTROPHILS % 58.7 % (40.0-76.0); PLATELET 394 x1000/uL (130-400); RED BLOOD CELL COUNT 2.68 mill/uL (4.7-6.1); RED CELL DISTRIBUTION WIDTH 15.2 % (11.6-14.6)
[2021-03-29 08:00] VITALS: BP 123/72
[2021-03-29 08:21] LABS: CHLORIDE 103 mEq/L (98-107)
[2021-03-29] MEDS: DOCUSATE SODIUM 100MG CAPSULE PO SCH ×2 (08:31→17:16)
[2021-03-29] MEDS: METRONIDAZOLE 500MG TABLET PO SCH ×2 (08:31→21:00)
[2021-03-29] MEDS: FAMOTIDINE 20MG TABLET PO SCH (08:31)
[2021-03-29] MEDS: LAMIVUDINE PO SCH ×2 (08:32→21:00)
[2021-03-29] MEDS: ZIDOVUDINE PO SCH ×2 (08:32→21:00)
[2021-03-29] MEDS: LOPINAVIR PO SCH ×2 (08:35→17:22)
[2021-03-29] MEDS: RITONAVIR PO SCH ×2 (08:35→17:22)
[2021-03-29] MEDS: VANCOMYCIN 1250MG in DEXTROSE 5% WATER 250ML IV SCH (11:52)
[2021-03-29] MEDS: CEFTRIAXONE 2 G in DEXTROSE 5% WATER 50 ML IV SCH (21:13)
[2021-03-29 22:00] VITALS: BP 120/70
[2021-03-30] MEDS: VANCOMYCIN 1250MG in DEXTROSE 5% WATER 250ML IV SCH (05:51)
[2021-03-30 06:06] LABS: CHLORIDE 104 mEq/L (98-107)
[2021-03-30] MEDS: BLOOD SUGAR DIAGNOSTIC STRIP TEST SCH ×4 (06:50→21:00)
[2021-03-30 07:52] VITALS: BP 112/66
[2021-03-30] MEDS: METRONIDAZOLE 500MG TABLET PO SCH ×2 (08:59→21:39)
[2021-03-30] MEDS: DOCUSATE SODIUM 100MG CAPSULE PO SCH ×2 (08:59→17:18)
[2021-03-30] MEDS: FAMOTIDINE 20MG TABLET PO SCH (08:59)
[2021-03-30] MEDS: INSULIN LISPRO 100 UNITS/ML SUBCUT SCH ×4 (09:00→21:00)
[2021-03-30] MEDS: RITONAVIR PO SCH ×2 (09:00→17:19)
[2021-03-30] MEDS: LAMIVUDINE PO SCH ×2 (09:00→21:39)
[2021-03-30] MEDS: ZIDOVUDINE PO SCH ×2 (09:00→21:39)
[2021-03-30] MEDS: LOPINAVIR PO SCH ×2 (09:00→17:19)
[2021-03-30 20:00] VITALS: BP 129/79
[2021-03-30] MEDS: CEFTRIAXONE 2 G in DEXTROSE 5% WATER 50 ML IV SCH (21:38)
[2021-03-31] MEDS: VANCOMYCIN 1250MG in DEXTROSE 5% WATER 250ML IV SCH ×2 (06:29→06:51)
[2021-03-31] MEDS: BLOOD SUGAR DIAGNOSTIC STRIP TEST SCH ×4 (06:52→20:23)
[2021-03-31] MEDS: BISACODYL 5MG TABLET PO PRN (06:56)
[2021-03-31 08:21] VITALS: BP 105/71
[2021-03-31] MEDS: INSULIN LISPRO 100 UNITS/ML SUBCUT SCH ×4 (09:00→20:36)
[2021-03-31] MEDS: DOCUSATE SODIUM 100MG CAPSULE PO SCH ×2 (09:56→17:28)
[2021-03-31] MEDS: LOPINAVIR PO SCH ×2 (09:56→17:28)
[2021-03-31] MEDS: FAMOTIDINE 20MG TABLET PO SCH (09:56)
[2021-03-31] MEDS: LAMIVUDINE PO SCH ×2 (09:56→20:22)
[2021-03-31] MEDS: ZIDOVUDINE PO SCH ×2 (09:56→20:22)
[2021-03-31] MEDS: METRONIDAZOLE 500MG TABLET PO SCH ×2 (09:56→20:22)
[2021-03-31] MEDS: RITONAVIR PO SCH ×2 (09:56→17:28)
[2021-03-31 20:00] VITALS: BP 123/84
[2021-03-31] MEDS: CEFTRIAXONE 2 G in DEXTROSE 5% WATER 50 ML IV SCH (20:22)
[2021-04-01 04:01] LABS: BASOPHILS % 0.7 % (0.0-2.0); EOSINOPHILS % 0.9 % (0.0-5.0); HEMATOCRIT. 26.2 % (42.0-52.0); HEMOGLOBIN. 9.1 g/dL (14.0-18.0); LYMPHOCYTES % 31.9 % (20.0-50.0); MEAN CORPUSCULAR HEMOGLOBIN 34.3 pg (28.0-32.0); MEAN CORPUSCULAR VOLUME 98.9 fL (80.0-94.0); MEAN PLATELET VOLUME 6.5 fl (7.4-10.4); MONOCYTES % 11.6 % (2.0-8.0); NEUTROPHILS % 54.9 % (40.0-76.0); PLATELET 393 x1000/uL (130-400); RED BLOOD CELL COUNT 2.65 mill/uL (4.7-6.1); RED CELL DISTRIBUTION WIDTH 15.6 % (11.6-14.6)
[2021-04-01 04:09] LABS: CHLORIDE 105 mEq/L (98-107)
[2021-04-01 04:16] LABS: VANCOMYCIN TROUGH 19.2 ug/mL (5.0-10.0)
[2021-04-01] MEDS: VANCOMYCIN 1250MG in DEXTROSE 5% WATER 250ML IV SCH (06:19)
[2021-04-01] MEDS: BLOOD SUGAR DIAGNOSTIC STRIP TEST SCH ×4 (06:19→21:54)
[2021-04-01] MEDS ORDERED: LACTULOSE 20G/30ML UDC PO SCH (06:30)
[2021-04-01 08:19] VITALS: BP 125/62
[2021-04-01] MEDS: RITONAVIR PO SCH ×2 (08:19→17:10)
[2021-04-01] MEDS: METRONIDAZOLE 500MG TABLET PO SCH ×2 (08:19→20:42)
[2021-04-01] MEDS: FAMOTIDINE 20MG TABLET PO SCH (08:19)
[2021-04-01] MEDS: LAMIVUDINE PO SCH ×2 (08:19→20:59)
[2021-04-01] MEDS: DOCUSATE SODIUM 100MG CAPSULE PO SCH ×2 (08:19→17:10)
[2021-04-01] MEDS: ZIDOVUDINE PO SCH ×2 (08:19→20:59)
[2021-04-01] MEDS: LOPINAVIR PO SCH ×2 (08:19→17:10)
[2021-04-01] MEDS: INSULIN LISPRO 100 UNITS/ML SUBCUT SCH ×4 (08:21→21:59)
[2021-04-01] MEDS: BISACODYL 5MG TABLET PO PRN ×2 (12:17→20:42)
[2021-04-01 20:00] VITALS: BP 132/66
[2021-04-01] MEDS: CEFTRIAXONE 2 G in DEXTROSE 5% WATER 50 ML IV SCH (20:42)
[2021-04-02] MEDS: VANCOMYCIN 1 G PREMIX 200 ML IV SCH ×2 (05:41→23:07)
[2021-04-02] MEDS: BLOOD SUGAR DIAGNOSTIC STRIP TEST SCH ×4 (05:41→20:17)
[2021-04-02 07:58] VITALS: BP 129/78
[2021-04-02] MEDS: INSULIN LISPRO 100 UNITS/ML SUBCUT SCH ×4 (09:00→21:05)
[2021-04-02] MEDS: DOCUSATE SODIUM 100MG CAPSULE PO SCH ×2 (09:16→17:28)
[2021-04-02] MEDS: LAMIVUDINE PO SCH ×2 (09:17→20:17)
[2021-04-02] MEDS: FAMOTIDINE 20MG TABLET PO SCH (09:17)
[2021-04-02] MEDS: ZIDOVUDINE PO SCH ×2 (09:17→20:17)
[2021-04-02] MEDS: LOPINAVIR PO SCH ×2 (09:17→17:28)
[2021-04-02] MEDS: RITONAVIR PO SCH ×2 (09:17→17:28)
[2021-04-02] MEDS: METRONIDAZOLE 500MG TABLET PO SCH ×2 (09:17→20:17)
[2021-04-02] MEDS ORDERED: DOCU-138 MT (13:42)
[2021-04-02] MEDS ORDERED: HYDR-4001 MT (13:42)
[2021-04-02] MEDS: NA PHOS,M-B/NA PHOS,DI-BA ENEMA 118ML PR PRN (17:29)
[2021-04-02 20:00] VITALS: BP 130/71
[2021-04-02] MEDS: CEFTRIAXONE 2 G in DEXTROSE 5% WATER 50 ML IV SCH (20:17)
[2021-04-03] MEDS: INSULIN LISPRO 100 UNITS/ML SUBCUT SCH ×2 (05:48→13:10)
[2021-04-03] MEDS: BLOOD SUGAR DIAGNOSTIC STRIP TEST SCH ×2 (05:48→11:15)
[2021-04-03 08:00] VITALS: BP 109/77
[2021-04-03] MEDS: DOCUSATE SODIUM 100MG CAPSULE PO SCH (09:21)
[2021-04-03] MEDS: FAMOTIDINE 20MG TABLET PO SCH (09:21)
[2021-04-03] MEDS: ZIDOVUDINE PO SCH (09:22)
[2021-04-03] MEDS: METRONIDAZOLE 500MG TABLET PO SCH (09:22)
[2021-04-03] MEDS: LAMIVUDINE PO SCH (09:22)
[2021-04-03] MEDS: LOPINAVIR PO SCH (09:23)
[2021-04-03] MEDS: RITONAVIR PO SCH (09:23)
[2021-04-03 10:42] LABS: BASOPHILS % 0.3 % (0.0-2.0); EOSINOPHILS % 0.6 % (0.0-5.0); HEMATOCRIT. 27.9 % (42.0-52.0); HEMOGLOBIN. 9.8 g/dL (14.0-18.0); LYMPHOCYTES % 30.4 % (20.0-50.0); MEAN CORPUSCULAR HEMOGLOBIN 34.8 pg (28.0-32.0); MEAN CORPUSCULAR VOLUME 98.9 fL (80.0-94.0); MEAN PLATELET VOLUME 7.1 fl (7.4-10.4); NEUTROPHILS % 57.7 % (40.0-76.0); PLATELET 461 x1000/uL (130-400); RED BLOOD CELL COUNT 2.82 mill/uL (4.7-6.1); RED CELL DISTRIBUTION WIDTH 15.8 % (11.6-14.6)
[2021-04-03 10:45] LABS: CHLORIDE 103 mEq/L (98-107)
[2021-04-03] MEDS ORDERED: *PATIENT'S OWN MEDICATION STORAGE XX SCH (11:15)
[2021-04-03 13:49] VITALS: BP 109/77
== END 2021-04-03 14:30 | disposition home health service (06) | DRG 95 ==
PROVIDERS: ADMIT Psychiatry & Neurology Neurology; ATTEND Internal Medicine
DX: G06.1 Intraspinal abscess and granuloma (principal); K56.7 Ileus, unspecified; J98.11 Atelectasis; N39.0 Urinary tract infection, site not specified; I10 Essential (primary) hypertension; N40.0 Benign prostatic hyperplasia without lower urinary tract symptoms; D64.9 Anemia, unspecified; R15.9 Full incontinence of feces; R32 Unspecified urinary incontinence; K56.41 Fecal impaction; K52.9 Noninfective gastroenteritis and colitis, unspecified; E11.9 Type 2 diabetes mellitus without complications; N32.0 Bladder-neck obstruction; G89.29 Other chronic pain; M51.36 Other intervertebral disc degeneration, lumbar region; Z79.4 Long term (current) use of insulin; Z79.899 Other long term (current) drug therapy
CPT/HCPCS: 36415; 80048; 80202; 81003; 82962; 85025; 97110; 97116; 97150; 97162; 97166; 97530; 97535; J0696; J1815; J2765; J3370; J7040; J7060